=== PATIENT | female | born 1945 | race Caucasian/White ===

== ENCOUNTER 2019-01-17 11:37 | Inpatient (IN) | payer MEDICARE, BC ==
[~2019-01-17] VITALS: Ht 165.1 cm; Wt 68.2 kg
[2019-01-17 12:12] LABS: BASOPHILS # (AUTO) 0.1 X10'3 (0-0.2); BASOPHILS % (AUTO) 0.7 % (0-1); EOSINOPHILS # (AUTO) 0.1 X10'3 (0-0.9); EOSINOPHILS % (AUTO) 1.1 % (0-6); HEMATOCRIT 39.7 % (35.0-45.0); HEMOGLOBIN 13.8 g/dl (12.0-16.0); LYMPHOCYTES # (AUTO) 2.9 X10'3 (1.1-4.8); LYMPHOCYTES % (AUTO) 21.7 % (21-51); MEAN CORPUSCULAR HGB CONC 34.7 g/dL (33.0-36.5); MEAN CORPUSCULAR VOLUME 92.3 FL (78-98); MEAN PLATELET VOLUME 8.3 FL (7.4-10.4); MONOCYTES # (AUTO) 0.8 X10'3 (0-0.9); MONOCYTES % (AUTO) 6.2 % (2-12); NEUTROPHILS # (AUTO) 9.3 X10'3 (1.8-7.7); NEUTROPHILS % (AUTO) 70.3 % (42-75); PLATELET COUNT 267 X10'3 (140-440); RED CELL DISTRIBUTION WIDTH 12.8 % (11.5-14.5); WHITE BLOOD COUNT 13.2 X10'3 (4.5-11.0)
[2019-01-17 12:27] LABS: ALANINE AMINOTRANSFERASE 34 U/L (12-78); ALBUMIN/GLOBULIN RATIO 1.1 (1.1-1.5); ALKALINE PHOSPHATASE 115 IU/L (46-116); ANION GAP 8 (8-16); ASPARTATE AMINO TRANSFERASE 23 U/L (10-37); BILIRUBIN,TOTAL 0.4 MG/DL (0.1-1.0); BLOOD UREA NITROGEN 20 MG/DL (7-18); BUN/CREATININE RATIO 24.7 (6.6-38.0); CALCIUM 9.2 MG/DL (8.5-10.1); CHLORIDE 103 MMOL/L (99-107); CREATININE 0.81 MG/DL (0.40-0.90); GLUCOSE 135 MG/DL (70-104); POTASSIUM 4.3 MMOL/L (3.5-5.1); SODIUM 139 MMOL/L (135-145); TOTAL CARBON DIOXIDE 27.9 MMOL/L (24-32); TOTAL PROTEIN 7.5 G/DL (6.4-8.2); eGFR 70 ML/MIN
[2019-01-17] MEDS ORDERED: aspirin 81mg tab.chew PO ONE (12:30)
[2019-01-17] MEDS ORDERED: nitroGLYCERIN 0.4mg SUBLingual tab SL PRN ×2 (12:30→13:35)
[2019-01-17] MEDS ORDERED: BRIM5DRO RIGHTEYE (13:01)
[2019-01-17] MEDS ORDERED: METF-436 PO (13:01)
[2019-01-17] MEDS ORDERED: SIMV20TA PO (13:01)
[2019-01-17] MEDS ORDERED: LISI-600 PO (13:01)
[2019-01-17] MEDS ORDERED: TIMO5DRO32 RIGHTEYE (13:01)
[2019-01-17] MEDS ORDERED: XAL0.005OS RIGHTEYE (13:01)
[2019-01-17] MEDS ORDERED: GLIP5TAB13 PO (13:01)
--- NOTE | 2019-01-17 13:24 | NUR ---
denies cp at this time. ntg held
[2019-01-17] MEDS ORDERED: glucagon, human recombinant 1mg kit SUBCUT PRN (13:35)
[2019-01-17] MEDS ORDERED: morphine 2 MG/ML inj. syringe IV PRN ×2 (13:35)
[2019-01-17] MEDS ORDERED: diphenhydrAMINE 25mg capsule PO PRN (13:35)
[2019-01-17] MEDS ORDERED: ondansetron/PF 4mg/2ml inj IV PRN (13:35)
[2019-01-17] MEDS ORDERED: aminophylline 250mg/10ml inj. IV PRN (13:35)
[2019-01-17] MEDS ORDERED: regadenoson 0.4mg/5ml syringe IV ONE (13:35)
[2019-01-17] MEDS ORDERED: dextrose 50%-water 50ml dispensing syringe IV PRN ×2 (13:35)
[2019-01-17] MEDS ORDERED: metoprolol tartrate 1mg/ml inj IV PRN (13:35)
[2019-01-17] MEDS ORDERED: magnesium 2GM in 50ml NS 50 ML IV PRN (13:35)
[2019-01-17] MEDS ORDERED: bisacodyl 10mg suppository rectal RC PRN (13:35)
[2019-01-17] MEDS: K and/or MAG REPLACEMENT MC SCH (13:35)
[2019-01-17] MEDS ORDERED: dextrose ORAL solution 15 GM/59 ML bottle PO PRN ×2 (13:35)
[2019-01-17] MEDS ORDERED: HYDROcodone/acetaminophen 5mg/325mg tablet PO PRN (13:35)
[2019-01-17] MEDS ORDERED: insulin Lispro (HumaLOG) vial - multi-dose SQ SCH (13:35)
[2019-01-17] MEDS ORDERED: HYDROcodone/acetaminophen 10/325mg tab PO PRN (13:35)
[2019-01-17] MEDS ORDERED: MESSAGE TO PHARMACY PO ONE (13:35)
[2019-01-17] MEDS ORDERED: potassium Cl 20 mEq SR tablet PO PRN ×2 (13:35)
[2019-01-17] MEDS ORDERED: potassium CL 10mEq/100ml bag 100 ML IV PRN ×2 (13:35)
[2019-01-17] MEDS ORDERED: magnesium Cl slow-release 64mg tablet PO PRN (13:35)
[2019-01-17] MEDS ORDERED: acetaminophen 325mg tablet PO PRN ×2 (13:35)
[2019-01-17] MEDS ORDERED: mag hydrox/Alum hydrox/simeth 30ml oral suspension PO PRN (13:35)
[2019-01-17] MEDS ORDERED: magnesium hydroxide 30ml (MOM) UD suspension PO PRN (13:35)
[2019-01-17] MEDS ORDERED: magnesium 4gm in 100ml NS 100 ML IV PRN (13:35)
--- NOTE | 2019-01-17 15:45 | NUR ---
PT GETTING US OF HEART AT THIS TIME
--- NOTE | 2019-01-17 16:03 | NUR ---
RIGHT EYE SURGERY RETINAL REPAIR
--- NOTE | 2019-01-17 16:12 | NUR ---
Got report from Veronica in the ED, patient arrived by ED bed, walked to PCU bed with standby assist. Alert and oriented to room, call light within reach. Vital Signs BP 138/83, HR 80 R 16, 02 97.9, Temp 97.9, pain level 2. All needs met at this time
[2019-01-17 18:00] VITALS: BP 125/68
--- NOTE | 2019-01-17 19:00 | NUR ---
Patient in room PCU 3012. I have received report from Mary Jo HAGER and had the opportunity to ask questions and assume patient care.
[2019-01-17] MEDS: heparin, porcine 5000 units/ml vial SQ SCH (20:00)
[2019-01-17] MEDS: normal saline 1000ml 1,000 ML IV SCH (20:39)
[2019-01-17] MEDS: latanoprost 0.005% 2.5ml ophthalmic drops RIGHTEYE SCH (20:44)
[2019-01-17] MEDS: timolol 0.5% ophthalmic solution 5ml bottle RIGHTEYE SCH (20:44)
[2019-01-17] MEDS: atorvastatin 10mg tablet PO SCH (20:47)
[2019-01-17] MEDS ORDERED: temazepam 15mg capsule PO PRN (21:00)
[2019-01-17] MEDS: insulin glargine (Lantus) pen - multi-dose SQ SCH (21:00)
[2019-01-17] MEDS: brimonidine 0.2% 5 ML ophthalmic drops RIGHTEYE SCH (21:34)
[2019-01-17 22:00] VITALS: BP 116/64
--- NOTE | 2019-01-17 22:30 | NUR ---
Dr. Sow notified that patient's bedtime glucose was 255 but she is refusing all insulin despite being educated about it and that she usually takes Metformin and Glipizide at home. Will still hold these medications for now and day time doctors can address whether they want to restart them based on what tests she may need.
[2019-01-18] VITALS (12 sets, daily range): BP systolic 103–157; BP diastolic 65–89
[2019-01-18] MEDS: normal saline 1000ml 1,000 ML IV SCH (05:48)
--- NOTE | 2019-01-18 06:12 | NUR ---
Problems reprioritized. Patient report given, questions answered & plan of care reviewed with Mary Jo HAGER.
[2019-01-18 06:20] LABS: BASOPHILS % (AUTO) 0.8 % (0-1); EOSINOPHILS # (AUTO) 0.1 X10'3 (0-0.9); EOSINOPHILS % (AUTO) 2.1 % (0-6); HEMATOCRIT 36.2 % (35.0-45.0); HEMOGLOBIN 12.6 g/dl (12.0-16.0); LYMPHOCYTES # (AUTO) 2.4 X10'3 (1.1-4.8); LYMPHOCYTES % (AUTO) 40.5 % (21-51); MEAN CORPUSCULAR HEMOGLOBIN 32.7 PG (27.0-31.0); MEAN CORPUSCULAR HGB CONC 34.8 g/dL (33.0-36.5); MEAN CORPUSCULAR VOLUME 93.9 FL (78-98); MEAN PLATELET VOLUME 8.6 FL (7.4-10.4); MONOCYTES # (AUTO) 0.4 X10'3 (0-0.9); NEUTROPHILS % (AUTO) 49.6 % (42-75); PLATELET COUNT 210 X10'3 (140-440); RED BLOOD COUNT 3.85 X10'6 (4.20-5.60); RED CELL DISTRIBUTION WIDTH 12.8 % (11.5-14.5); WHITE BLOOD COUNT 6.1 X10'3 (4.5-11.0)
--- NOTE | 2019-01-18 06:41 | NUR ---
Patient in room PCU 3012. I have received report from Anabela HAGER and had the opportunity to ask questions and assume patient care. All patient's needs met at this time.
[2019-01-18 06:59] LABS: ALANINE AMINOTRANSFERASE 25 U/L (12-78); ALBUMIN 3.3 G/DL (3.4-5.0); ALBUMIN/GLOBULIN RATIO 1.1 (1.1-1.5); ALKALINE PHOSPHATASE 100 IU/L (46-116); ANION GAP 9 (8-16); ASPARTATE AMINO TRANSFERASE 17 U/L (10-37); BILIRUBIN,TOTAL 0.6 MG/DL (0.1-1.0); BLOOD UREA NITROGEN 17 MG/DL (7-18); BUN/CREATININE RATIO 22.4 (6.6-38.0); CALCIUM 8.5 MG/DL (8.5-10.1); CHLORIDE 105 MMOL/L (99-107); CHOL/HDL RATIO 3.3 (0.00-4.99); CHOLESTEROL 150 MG/DL (0-200); CREATININE 0.76 MG/DL (0.40-0.90); GLUCOSE 192 MG/DL (70-104); HDL CHOLESTEROL 45 MG/DL (35-60); LDL CHOLESTEROL 93 MG/DL (50-100); MAGNESIUM 1.7 MG/DL (1.5-2.4); PHOSPHORUS 4.3 MG/DL (2.3-4.5); POTASSIUM 4.3 MMOL/L (3.5-5.1); SODIUM 143 MMOL/L (135-145); TOTAL CARBON DIOXIDE 28.7 MMOL/L (24-32); TOTAL PROTEIN 6.3 G/DL (6.4-8.2); TRIGLYCERIDES 136 MG/DL (20-135); eGFR 75 ML/MIN
[2019-01-18] MEDS: K and/or MAG REPLACEMENT MC SCH (08:00)
[2019-01-18] MEDS: brimonidine 0.2% 5 ML ophthalmic drops RIGHTEYE SCH ×3 (08:00→21:27)
[2019-01-18] MEDS: latanoprost 0.005% 2.5ml ophthalmic drops RIGHTEYE SCH ×3 (08:00→23:10)
[2019-01-18] MEDS: lisinopril 20mg tablet PO SCH (08:00)
[2019-01-18] MEDS: heparin, porcine 5000 units/ml vial SQ SCH ×2 (08:00→19:25)
[2019-01-18] MEDS ORDERED: FLU VACC QS2019-20 36MOS UP/PF 60 MCG/0.5 ML SYRINGE IMVAC ONE (10:00)
[2019-01-18] MEDS: timolol 0.5% ophthalmic solution 5ml bottle RIGHTEYE SCH ×2 (11:46→19:23)
--- NOTE | 2019-01-18 14:55 | NUR ---
Paged Dr Ventura MESSAGE: Re: Adalgisa Husain [id number]. Pt had Gretta this morning, can she eat now? Thanks Mary Jo Henley [phone]
--- NOTE | 2019-01-18 16:54 | NUR ---
DM consult A1c is 8, patient not available in room at time of RD visit; left written DM education handout and referral to outpatient DM education class on Wednesday Addendum: 01/18/19 at [address] Amended: Links added.
--- NOTE | 2019-01-18 18:31 | NUR ---
Patient has had high blood sugars throughout the day, 1700 BS was 143, patient refuses to take any type of insulin, states she will take her metformin and glyberide. MD aware.
--- NOTE | 2019-01-18 18:43 | NUR ---
Paged Dr wallace PAGER ID: [phone] MESSAGE: Katharina Adalgisa Husain Rm [id number] FYI pt DM 2, BS this am was 202, BS afternoon 177, BS night 144. Patient refuses all insulin.
--- NOTE | 2019-01-18 18:47 | NUR ---
Problems reprioritized. Patient report given, questions answered & plan of care reviewed with Arminda uBenrostro All patients needs met at this time.
[2019-01-18] MEDS: insulin glargine (Lantus) pen - multi-dose SQ SCH (21:00)
[2019-01-18] MEDS: atorvastatin 10mg tablet PO SCH (21:27)
[2019-01-19 02:00] VITALS: BP 106/62
--- NOTE | 2019-01-19 05:08 | NUR ---
Patient in room PCU 3012. I have received report from Mary Jo Henley RN and had the opportunity to ask questions and assume patient care.
[2019-01-19 06:00] VITALS: BP 97/76
--- NOTE | 2019-01-19 06:11 | NUR ---
Problems reprioritized. Patient report given, questions answered & plan of care reviewed with Mary Jo Baldwin RN.
--- NOTE | 2019-01-19 06:15 | NUR ---
Patient in room PCU 3012C. I have received report from Arminda HAGER and had the opportunity to ask questions and assume patient care.
[2019-01-19 06:19] LABS: BASOPHILS # (AUTO) 0.1 X10'3 (0-0.2); BASOPHILS % (AUTO) 0.8 % (0-1); EOSINOPHILS # (AUTO) 0.2 X10'3 (0-0.9); EOSINOPHILS % (AUTO) 2.5 % (0-6); HEMATOCRIT 37.3 % (35.0-45.0); HEMOGLOBIN 13.3 g/dl (12.0-16.0); LYMPHOCYTES # (AUTO) 2.5 X10'3 (1.1-4.8); LYMPHOCYTES % (AUTO) 39.9 % (21-51); MEAN CORPUSCULAR HEMOGLOBIN 32.6 PG (27.0-31.0); MEAN CORPUSCULAR HGB CONC 35.5 g/dL (33.0-36.5); MEAN CORPUSCULAR VOLUME 91.7 FL (78-98); MEAN PLATELET VOLUME 8.6 FL (7.4-10.4); MONOCYTES # (AUTO) 0.5 X10'3 (0-0.9); MONOCYTES % (AUTO) 7.9 % (2-12); NEUTROPHILS # (AUTO) 3.1 X10'3 (1.8-7.7); NEUTROPHILS % (AUTO) 48.9 % (42-75); PLATELET COUNT 245 X10'3 (140-440); RED BLOOD COUNT 4.07 X10'6 (4.20-5.60); RED CELL DISTRIBUTION WIDTH 12.5 % (11.5-14.5); WHITE BLOOD COUNT 6.3 X10'3 (4.5-11.0)
[2019-01-19 06:53] LABS: ALANINE AMINOTRANSFERASE 26 U/L (12-78); ALBUMIN 3.4 G/DL (3.4-5.0); ALBUMIN/GLOBULIN RATIO 1.1 (1.1-1.5); ALKALINE PHOSPHATASE 101 IU/L (46-116); ANION GAP 11 (8-16); ASPARTATE AMINO TRANSFERASE 20 U/L (10-37); BILIRUBIN,TOTAL 0.7 MG/DL (0.1-1.0); BLOOD UREA NITROGEN 15 MG/DL (7-18); BUN/CREATININE RATIO 18.5 (6.6-38.0); CALCIUM 8.6 MG/DL (8.5-10.1); CHLORIDE 103 MMOL/L (99-107); CREATININE 0.81 MG/DL (0.40-0.90); GLUCOSE 187 MG/DL (70-104); MAGNESIUM 1.9 MG/DL (1.5-2.4); PHOSPHORUS 4.6 MG/DL (2.3-4.5); POTASSIUM 4.1 MMOL/L (3.5-5.1); SODIUM 141 MMOL/L (135-145); TOTAL CARBON DIOXIDE 26.8 MMOL/L (24-32); TOTAL PROTEIN 6.6 G/DL (6.4-8.2); eGFR 70 ML/MIN
[2019-01-19] MEDS: timolol 0.5% ophthalmic solution 5ml bottle RIGHTEYE SCH (07:24)
[2019-01-19 08:00] VITALS: BP_SYST 97
[2019-01-19] MEDS: lisinopril 20mg tablet PO SCH (08:00)
[2019-01-19] MEDS: heparin, porcine 5000 units/ml vial SQ SCH (08:00)
[2019-01-19] MEDS: K and/or MAG REPLACEMENT MC SCH (08:00)
--- NOTE | 2019-01-19 09:43 | NUR ---
Patient's morning FSBS was 192. Patient is refusing all insulin. She states that she does not take insulin at home, normally takes pills and wants to wait until she is discharge home to resume her medications. She adamantly refuses insulin when explained to her our protocol. Will continue to monitor blood glucose.
[2019-01-19] MEDS ORDERED: FLU VACC QS2019-20 36MOS UP/PF 60 MCG/0.5 ML SYRINGE IMVAC ONE (10:00)
[2019-01-19] MEDS ORDERED: NITR0.4T51 SL (10:03)
--- NOTE | 2019-01-19 11:10 | NUR ---
Per MD order, Dr. Ventura, patient is stable for discharge home. Discharge packet printed and reviewed with patient. Diabetes survival skills completed with patient. Patient states that she will call per PCP, Dr. Felton, for a follow up appointment RE hospitalization and diabetes. Tele monitor removed, IV removed with cannula intact. Discharge packet reviewed with patient and signed. Prescription called to pharmacy of choice. All belongings sent with patient. All questions answered. Patient escorted to private vehicle via wheelchair to go home with self.
== END 2019-01-19 11:44 | disposition home or self-care (01) | DRG 552 ==
LOC: ER 11:39 → ED HOLD 15:13 → PCU 3S 16:12
PROVIDERS: ADMIT Family Medicine; ATTEND Family Medicine
PROC: 4A02XM4 Measurement of Cardiac Total Activity, External Approach (ICD-10-PCS; 2019-01-18)
PROC: 3E033HZ Introduction of Radioactive Substance into Peripheral Vein, Percutaneous Approach (ICD-10-PCS; 2019-01-18)
PROC: 3E02340 Introduction of Influenza Vaccine into Muscle, Percutaneous Approach (ICD-10-PCS; principal; 2019-01-19)
DX: M47.812 Spondylosis without myelopathy or radiculopathy, cervical region (principal); I45.10 Unspecified right bundle-branch block; E11.9 Type 2 diabetes mellitus without complications; M25.511 Pain in right shoulder; E78.5 Hyperlipidemia, unspecified; R07.89 Other chest pain; Z60.2 Problems related to living alone; I10 Essential (primary) hypertension; Z80.1 Family history of malignant neoplasm of trachea, bronchus and lung; Z80.3 Family history of malignant neoplasm of breast; Z82.3 Family history of stroke; Z88.0 Allergy status to penicillin; Z98.51 Tubal ligation status; Z23 Encounter for immunization; Z88.2 Allergy status to sulfonamides; Z88.8 Allergy status to other drugs, medicaments and biological substances
CPT/HCPCS: 36415; 71045; 72052; 78452; 80053; 80061; 82948; 83036; 83735; 84100; 84443; 84484; 85025; 87081; 93005; 93017; 93306; 99285; A9500; G0378; J1644; J1815; J2785; J7030; Q2037